=== PATIENT | male | born 1990 | race Caucasian/White ===

== ENCOUNTER 2017-05-01 09:34 | Emergency (ER) | payer MEDICAID ==
[~2017-05-01] VITALS: Ht 165.1 cm; Wt 56.0 kg
[2017-05-01] MEDS ORDERED: IBUP-2029 PO (09:41)
[2017-05-01] MEDS ORDERED: KETOROLAC 60MG/2ML VIAL IM ONE (11:30)
[2017-05-01 11:39] VITALS: BP 114/79
== END 2017-05-01 14:53 | disposition left against medical advice (07) ==
LOC: ER 10:04
DX: R05 Cough (principal); R56.9 Unspecified convulsions; F15.10 Other stimulant abuse, uncomplicated
CPT/HCPCS: 96372; 99283; J1885; Z7610

== ENCOUNTER 2017-06-14 21:16 | Emergency (ER) | payer MEDICAID ==
[~2017-06-14] VITALS: Ht 170.2 cm; Wt 86.0 kg
[~2017-06-14 21:16] MED LIST: IBUP-2029 PO
[2017-06-14 21:21] VITALS: BP 116/78
== END 2017-06-15 01:26 | disposition left against medical advice (07) ==
LOC: ER 21:24
DX: Z53.21 Procedure and treatment not carried out due to patient leaving prior to being seen by health care provider (principal)

== ENCOUNTER 2018-05-06 20:37 | Emergency (ER) | payer MEDICAID ==
[~2018-05-06] VITALS: Ht 165.1 cm; Wt 77.0 kg
[2018-05-07] MEDS ORDERED: IBUPROFEN 600MG TABLET PO ONE (03:00)
[2018-05-07 03:24] LABS: BASOPHILS % 0.6 % (0.0-2.0); EOSINOPHILS % 2.5 % (0.0-5.0); HEMATOCRIT. 41.6 % (42.0-52.0); LYMPHOCYTES % 28.7 % (20.0-50.0); MEAN CORPUSCULAR HEMOGLOBIN 28.5 pg (28.0-32.0); MEAN CORPUSCULAR VOLUME 84.3 fL (80.0-94.0); MEAN PLATELET VOLUME 7.4 fl (7.4-10.4); MONOCYTES % 6.3 % (2.0-8.0); NEUTROPHILS % 61.9 % (40.0-76.0); PLATELET 294 x1000/uL (130-400); RED BLOOD CELL COUNT 4.93 mill/uL (4.7-6.1); RED CELL DISTRIBUTION WIDTH 13.6 % (11.6-14.6)
[2018-05-07 03:29] LABS: CHLORIDE 103 mEq/L (98-107)
[2018-05-07] MEDS ORDERED: TETANUS, DIPHTHERIA, PERTUSSIS VAC/PF 0.5ML (>7YR OLD) IM ONE (05:00)
[2018-05-07] MEDS ORDERED: VANCOMYCIN 1 G PREMIX 200 ML IV SCH (05:00)
[2018-05-07 05:57] VITALS: BP 102/59
[2018-05-07] MEDS ORDERED: SODIUM CHLORIDE 0.9% 1,000 ML IV ONE (06:00)
== END 2018-05-07 07:03 | disposition home or self-care (01) ==
LOC: ER 20:37
DX: L03.011 Cellulitis of right finger (principal); L02.511 Cutaneous abscess of right hand; F20.9 Schizophrenia, unspecified; G40.909 Epilepsy, unspecified, not intractable, without status epilepticus; F17.200 Nicotine dependence, unspecified, uncomplicated; F12.10 Cannabis abuse, uncomplicated; Z79.899 Other long term (current) drug therapy
CPT/HCPCS: 36415; 73140; 80053; 83605; 85025; 87070; 87077; 87205; 90471; 90715; 96365; 99284; J3370; J7030

== ENCOUNTER 2018-11-10 10:26 | Emergency (ER) | payer MEDICAID ==
[~2018-11-10] VITALS: Ht 170.2 cm; Wt 73.0 kg
[2018-11-10] MEDS ORDERED: MORPHINE SULFATE 4 MG/ML CPJ (NOT FOR IM USE) IV ONE (11:00)
[2018-11-10] MEDS ORDERED: TETANUS, DIPHTHERIA, PERTUSSIS VAC/PF 0.5ML (>7YR OLD) IM ONE (12:30)
[2018-11-10 17:53] VITALS: BP 109/73
== END 2018-11-10 17:53 | disposition home or self-care (01) ==
LOC: ER 10:34
DX: S09.8XXA Other specified injuries of head, initial encounter (principal); S02.2XXA Fracture of nasal bones, initial encounter for closed fracture; S02.81XA Fracture of other specified skull and facial bones, right side, initial encounter for closed fracture; F20.9 Schizophrenia, unspecified; R56.9 Unspecified convulsions; Y08.89XA Assault by other specified means, initial encounter; Y93.89 Activity, other specified; Y92.9 Unspecified place or not applicable
CPT/HCPCS: 70450; 70486; 72125; 90471; 90715; 96374; 99284; J2270

== ENCOUNTER 2021-07-17 15:54 | Emergency (ER) | payer MEDICAID ==
[~2021-07-17] VITALS: Ht 175.3 cm; Wt 78.0 kg
[2021-07-17] MEDS ORDERED: MAGNESIUM/ALUMINUM HYDROXIDE/SIMETHICONE 30ML UDC PO STA (16:27)
[2021-07-17 17:04] LABS: HEMATOCRIT. 47.4 % (42.0-52.0); HEMOGLOBIN. 15.9 g/dL (14.0-18.0); MEAN CORPUSCULAR HEMOGLOBIN 28.5 pg (28.0-32.0); MEAN CORPUSCULAR VOLUME 84.8 fL (80.0-94.0); MEAN PLATELET VOLUME 7.5 fl (7.4-10.4); PLATELET 205 x1000/uL (130-400)
[2021-07-17 17:10] LABS: CHLORIDE 104 mEq/L (98-107)
[2021-07-17 17:13] LABS: ETHANOL BLOOD < 10 mg/dL
[2021-07-17 17:39] LABS: PLATELET ESTIMATE NORMAL
[2021-07-17] MEDS ORDERED: SODIUM CHLORIDE 0.9% 1,000 ML IV ONE (18:15)
[2021-07-17 20:42] LABS: CLARITY URINE CLEAR (CLEAR); COLOR URINE YELLOW (YELLOW); KETONES URINE TRACE (NEGATIVE); LEUKOCYTE ESTERASE URINE 1+ (NEGATIVE); NITRITE URINE NEGATIVE (NEGATIVE); OCCULT BLOOD URINE NEGATIVE (NEGATIVE); PROTEIN URINE NEGATIVE (NEGATIVE); SPECIFIC GRAVITY URINE 1.028 (1.005-1.030); UROBILINOGEN URINE 0.2 E.U./dL (0.2-1.0)
[2021-07-17] MEDS ORDERED: IOHEXOL-300 100 ML BOTTLE ONE (20:54)
[2021-07-17 20:59] LABS: *AMPHETAMINES SCREEN URINE PRESUMTIVE POSITIVE (NEGATIVE); *BARBITURATES SCREEN URINE NEGATIVE (NEGATIVE); *BENZODIAZEPINES SCREEN URINE NEGATIVE (NEGATIVE); *COCAINE SCREEN URINE NEGATIVE (NEGATIVE); METHADONE URINE SCREEN NEGATIVE (NEGATIVE); OPIATES URINE SCREEN NEGATIVE (NEGATIVE)
[2021-07-17 21:00] LABS: CANNABINOID URINE SCREEN PRESUMTIVE POSITIVE (NEGATIVE); PHENCYCLIDINE URINE SCREEN NEGATIVE (NEGATIVE)
[2021-07-17] MEDS ORDERED: METRONIDAZOLE 500 MG PREMIX 100 ML IV ONE (22:15)
[2021-07-17] MEDS ORDERED: CEFTRIAXONE 1 G PREMIX 50 ML IV ONE (22:15)
[2021-07-18] MEDS ORDERED: METR-167 MT (00:18)
[2021-07-18] MEDS ORDERED: CIPR500T5 MT (00:19)
[2021-07-18 00:44] VITALS: BP 130/82
== END 2021-07-18 00:35 | disposition home or self-care (01) ==
LOC: ER 15:54
DX: K52.9 Noninfective gastroenteritis and colitis, unspecified (principal); R10.9 Unspecified abdominal pain; F15.10 Other stimulant abuse, uncomplicated; F12.10 Cannabis abuse, uncomplicated; F20.9 Schizophrenia, unspecified; R56.9 Unspecified convulsions
CPT/HCPCS: 36415; 74177; 80053; 80305; 80320; 81003; 83690; 85025; 96361; 96365; 96366; 99285; J0696; J3490; J7030; Q9967; Z7610; G0480

== ENCOUNTER 2023-04-11 19:17 | Emergency (ER) | payer MEDICAID ==
[~2023-04-11] VITALS: Ht 172.7 cm; Wt 91.0 kg
[~2023-04-11 19:17] MED LIST changes: +CIPR500T5 MT; +METR-167 MT
[2023-04-11 19:27] VITALS: TEMP 98.1; O2SAT 100
[2023-04-11] MEDS ORDERED: TETANUS, DIPHTHERIA, PERTUSSIS VAC/PF 0.5ML (>10YR OLD) IM ONE ×2 (19:45→23:45)
[2023-04-11] MEDS ORDERED: IBUPROFEN 400MG TABLET PO ONE (19:45)
[2023-04-11 23:45] VITALS: BP 130/83; PULSE 114; RESP 16
[2023-04-11] MEDS ORDERED: IBUPROFEN 400MG TABLET PO NR (23:45)
== END 2023-04-12 00:58 | disposition home or self-care (01) ==
LOC: ER 19:17
DX: S80.211A Abrasion, right knee, initial encounter (principal); R51.9 Headache, unspecified; F12.10 Cannabis abuse, uncomplicated; Z88.6 Allergy status to analgesic agent; Z88.8 Allergy status to other drugs, medicaments and biological substances; Z86.59 Personal history of other mental and behavioral disorders; X58.XXXA Exposure to other specified factors, initial encounter; Y93.89 Activity, other specified; Y92.89 Other specified places as the place of occurrence of the external cause; Y99.8 Other external cause status
CPT/HCPCS: 73562; 90471; 90715; 99285